=== PATIENT | male | born 1980 ===

== ENCOUNTER 2017-03-14 08:23 | Emergency (ER) | payer SELFPAY ==
[2017-03-14 08:40] VITALS: BMI 28.3
--- NOTE | 2017-03-14 09:01 | C.PDOC ---
History Of Present Illness 37 y/o male presents to ED with c/o feeling tired and generalized fatigue for 3 weeks. Pt states last year he went through a divorce, which he has handled well emotionally, noting he is now in a different relationship. 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 Pt states, however, he has been unable to exercise normally due to fatigue. He also reports nausea, decreased appetite, and difficulty sleeping. Denies any significant weight loss or weight gain, headache, dizziness, chest pain, difficulty breathing, vomiting, depression SI/HI, recent travel. Last doctor visit 1 year ago in [place] at a clinic. Time Seen by Provider: 03/14/17 08:28 Chief Complaint (Nursing): Fever History Per: Patient History/Exam Limitations: no limitations Onset/Duration Of Symptoms: Days Current Symptoms Are (Timing): Still Present Sick Contacts (Context): None Associated Symptoms: Nausea. denies: Fever, Chills, Cough, Neck Pain, Vomiting , Diarrhea Recent travel outside of the [place]: No Past Medical History Reviewed: Historical Data, Nursing Documentation, Vital Signs Vital Signs: Last Vital Signs Temp 97.7 F 03/14/17 10:30 Pulse 65 03/14/17 10:30 Resp 18 03/14/17 10:30 BP 106/60 03/14/17 10:30 Pulse Ox 98 03/14/17 10:30 Family History: States: Unknown Family Hx - Social History Hx Alcohol Use: No Hx Substance Use: No - Immunization History Hx Tetanus Toxoid Vaccination: No Hx Influenza Vaccination: No Hx Pneumococcal Vaccination: No Review Of Systems Except As Marked, All Systems Reviewed And Found Negative. Constitutional: Positive for: Weakness. Negative for: Fever, Chills ENT: Negative for: Throat Pain Cardiovascular: Negative for: Chest Pain, Palpitations Respiratory: Negative for: Cough, Shortness of Breath, Wheezing Gastrointestinal: Positive for: Nausea. Negative for: Vomiting, Abdominal Pain Musculoskeletal: Negative for: Neck Pain Skin: Negative for: Rash Neurological: Negative for: Headache Physical Exam - Physical Exam Appears: Non-toxic, No Acute Distress Skin: Normal Color, Warm, Dry Head: Atraumatic, Normacephalic Eye(s): bilateral: Normal Inspection, PERRL, EOMI Ear(s): Bilateral: Normal Nose: Normal Oral Mucosa: Moist Chest: Symmetrical Cardiovascular: Rhythm Regular Respiratory: Normal Breath Sounds, No Rales, No Rhonchi, No Wheezing Gastrointestinal/Abdominal: Soft, No Tenderness, No Guarding, No Rebound Back: Normal Inspection Extremity: Normal ROM, Capillary Refill (< 2 sec.) Neurological/Psych: Oriented x3, Normal Speech, Normal Cognition ED Course And Treatment - Laboratory Results Result Diagrams: 03/14/17 09:30 03/14/17 09:30 O2 Sat by Pulse Oximetry: 99 (RA) Pulse Ox Interpretation: Normal Medical Decision Making Medical Decision Makin37 y/o male presents to ED with c/o feeling tired and generalized fatigue for 3 weeks. Considering pt's history and exam, to r/o any underlying medical conditions such as new onset DM, anemia, hypothyroidism, renal insufficiency or electrolyte abnormality. Labs and UA ordered. Labs reviewed and are wnl, including TSH. Labs results d/w the pt in great detail. On re-evaluation, pt is resting comfortably in bed in no acute distress. VSS. Pt advised to f/u with the clinic in 2 days without fail for further evaluation. Return to the ER at any time for any new or worsening symptoms. Disposition - Disposition Referrals: [facility] [Outside] Disposition: HOME/ ROUTINE Disposition Time: 10:30 Condition: STABLE Additional Instructions: Follow up with the clinic in 2 days without fail for further evaluation. Return to the ER at any time for any new or worsening symptoms. Instructions: Fatigue (ED) Forms: Work Excuse Print Language: NIUEAN - Clinical Impression Clinical Impression: Fatigue - PA / [employer] ARCHITECT / Resident Statement MD/DO has reviewed & agrees with the documentation as recorded. - Scribe Statement The provider has reviewed the documentation as recorded by the Emileeibpilar Simon All medical record entries made by the Bakari were at my direction and personally dictated by me. I have reviewed the chart and agree that the record accurately reflects my personal performance of the history, physical exam, medical decision making, and the department course for this patient. I have also personally directed, reviewed, and agree with the discharge instructions and disposition.
[2017-03-14 09:31] LABS: RBC URINE 1 /hpf (0-3); URINE BILIRUBIN NEGATIVE (NEGATIVE); URINE BLOOD NEGATIVE (NEGATIVE); URINE COLOR Amber (YELLOW); URINE GLUCOSE (UA) NORMAL (Normal); URINE KETONE TRACE mg/dL (NEGATIVE); URINE LEUKOCYTE ESTERASE NEG Leu/uL (Negative); URINE PROTEIN NEGATIVE (NEGATIVE); WBC URINE 3 /hpf (0-5)
[2017-03-14 09:34] LABS: BASO # 0.1 K/uL (0.0-0.2); BASO % 0.9 % (0.0-2.0); EOS # 0.1 K/uL (0.0-0.7); EOS % 1.4 % (0.0-4.0); HEMATOCRIT 44.8 % (35.0-51.0); LYMPH # 1.8 K/uL (1.0-4.3); LYMPH % 30.3 % (20.0-40.0); MEAN CELL VOLUME 90.4 fL (80.0-94.0); MEAN CORPUSCULAR HEMOGLOBIN 31.1 pg (27.0-31.0); MEAN CORPUSCULAR HGB CONC 34.4 g/dL (33.0-37.0); MEAN PLATELET VOLUME 8.9 fL (7.2-11.7); MONO # 0.6 K/uL (0.0-0.8); MONO % 10.8 % (0.0-10.0); RED CELL DISTRIBUTION WIDTH 12.6 % (11.5-14.5)
[2017-03-14 09:49] LABS: CHLORIDE 99 mmol/L (98-107); POTASSIUM 3.9 mmol/L (3.6-5.2); SODIUM 139 mmol/L (132-148)
[2017-03-14 09:51] LABS: GFR AFRICAN-AMERICAN > 60
[2017-03-14 09:52] LABS: ALB/GLOB RATIO 1.4 (1.0-2.1); ALKALINE PHOSPHATASE 63 U/L (38-126); ALT/SGPT 38 U/L (21-72); AST/SGOT 29 U/L (17-59); BILIRUBIN,TOTAL 1.3 mg/dL (0.2-1.3); BLOOD UREA NITROGEN 16 mg/dL (9-20); CARBON DIOXIDE 26 mmol/L (22-30); GLUCOSE,RANDOM 81 mg/dL (75-110); TOTAL PROTEIN 6.9 g/dL (6.3-8.3)
[2017-03-14 09:53] LABS: CALCIUM 8.8 mg/dl (8.6-10.4)
[2017-03-14 10:22] LABS: THYROID STIMULATING HORMONE 2.06 mIU/L (0.46-4.68)
[2017-03-14 10:34] VITALS: BP 106/60; PULSE 65; RESP 18; TEMP 97.7
[2017-03-14 10:42] VITALS: O2SAT 99
== END 2017-03-14 10:53 | disposition home or self-care (01) ==
LOC: EDBD 08:23 → C.ER 08:23
DX: R53.83 Other fatigue (principal)